=== PATIENT | female | born 1965 | race Two or more races ===

== ENCOUNTER 2017-02-14 09:44 | Emergency (ER) | payer SELFPAY ==
[~2017-02-14] VITALS: Ht 160 cm; Wt 63.5 kg
[2017-02-14] MEDS ORDERED: AMLODIPINE BES2.5 MG ORAL (09:48)
[2017-02-14 10:00] VITALS: BP 143/83
[2017-02-14 10:19] LABS: BASOPHILS % (AUTO) 1.1 % (0.0-2.0); EOSINOPHILS % (AUTO) 1.2 % (0.0-3.0); LYMPHOCYTES % (AUTO) 25.9 % (20.0-45.0); MEAN CORPUSCULAR HEMOGLOBIN 30.4 PG (27.0-31.0); MEAN CORPUSCULAR HGB CONC 33.6 G/DL (32.0-36.0); MEAN CORPUSCULAR VOLUME 91 FL (80-99); MEAN PLATELET VOLUME 5.9 FL (6.5-10.1); MONOCYTES % (AUTO) 6.2 % (1.0-10.0); NEUTROPHILS % (AUTO) 65.6 % (45.0-75.0); PLATELET COUNT 350 K/UL (150-450); RED BLOOD COUNT 4.67 M/UL (4.20-5.40); RED CELL DISTRIBUTION WIDTH 11.7 % (11.6-14.8); WHITE BLOOD COUNT 8.7 K/UL (4.8-10.8)
[2017-02-14 10:29] LABS: ALANINE AMINOTRANSFERASE 25 U/L (3-33); ALBUMIN/GLOBULIN RATIO 1.2 (1.0-2.7); ANION GAP 14 (5-15); ASPARTATE AMINO TRANSFERASE 16 U/L (5-40); CALCIUM 9.4 mg/dL (8.6-10.2); CARBON DIOXIDE 26 mEQ/L (20-30); CHLORIDE 101 mEQ/L (98-107); CREATININE 0.6 mg/dL (0.5-0.9); GLOMERULAR FILTRATION RATE > 60 mL/min (>60); HEMOLYSIS 7; POTASSIUM 3.6 mEQ/L (3.4-4.9); SODIUM 141 mEQ/L (135-145); TOTAL PROTEIN 7.7 g/dL (6.6-8.7)
[2017-02-14 10:30] LABS: TROPONIN I < 0.30 ng/mL (<=0.30)
[2017-02-14] MEDS ORDERED: Ketorolac 30mg Inj IV ONE (10:30)
[2017-02-14 10:40] LABS: CKMB < 1.5 ng/mL (< 3.8)
--- NOTE | 2017-02-14 10:57 | Diagnostic Imaging Report ---
Indication: SOB Technique: One view of the chest Comparison: none Findings: Lungs and pleural spaces are clear. Heart size is normal. Impression: No acute process
[2017-02-14 11:00] VITALS: BP 135/70
[2017-02-14] MEDS ORDERED: IBUPROFEN600 MG ORAL (11:04)
--- NOTE | 2017-02-14 11:08 | Emergency Room Report ---
History of Present Illness General Chief Complaint: Chest Pain Source: Patient, EMS Present Illness HPI 51YOF with chest pain since yesterday Took ASA yesterday Pain is upper left chest, left shoulder with associated left arm pain Worse with movement Worse on palpation ?history of HTN Allergies: Coded Allergies: MORPHINE (Verified Allergy, Unknown, 02/14/17) Patient History Past Medical History: HTN Past Surgical History: none Pertinent Family History: none Social History: Denies: smoking, alcohol use, drug use Last Menstrual Period: do not remember Now: No Immunizations: UTD Reviewed Nursing Documentation: PMH: Agreed, PSxH: Agreed Nursing Documentation-PMH Past Medical History: No History, Except For Hx Hypertension: Yes Hx Diabetes: Yes - pre diabetic Review of Systems All Other Systems: negative except mentioned in HPI Physical Exam Vital Signs Date Time Temp Pulse Resp B/P (MAP) Pulse Ox O2 Delivery O2 Flow Rate FiO2 02/14/17 09:33 98.1 62 16 152/94 100 Room Air Sp02 EP Interpretation: reviewed, normal General Appearance: normal inspection, well appearing, no apparent distress, alert, GCS 15, non-toxic Head: normocephalic, atraumatic Eyes: bilateral eye PERRL, bilateral eye EOMI ENT: normal ENT inspection, hearing grossly normal, normal voice Neck: normal inspection, full range of motion, supple, no bony tend Respiratory: normal inspection, lungs clear, normal breath sounds, no respiratory distress, no retraction, no wheezing, other - hyperalgesia to palpation left upper chest, chest symmetrical Cardiovascular #1: regular rate, rhythm, no edema Gastrointestinal: normal inspection, normal bowel sounds, non tender, soft, no guarding, no hernia Genitourinary: no CVA tenderness Musculoskeletal: normal inspection, back normal, normal range of motion, Yolanda' s Sign negative Neurologic: normal inspection, alert, oriented x3, responsive, account support manager III-XII nml as tested, motor strength/tone normal, speech normal Psychiatric: normal inspection, judgement/insight normal, mood/affect normal Skin: normal inspection, normal color, no rash Medical Decision Making Diagnostic Impression: Primary Impression: Chest pain Qualified Codes: R07.89 - Other chest pain ER Course VSS. Afebrile Most likely MSK pain given duration of time, reproducible, worse with movement, improved with toradol Unlikely ACS given ECG NSR, no ischemia. Troponin 0. CXR negative for PTX Advised PMD followup in 2-3 days Return to ER for worsening symptoms EKG Diagnostic Results Rate: normal Rhythm: NSR ST Segments: no acute changes ASA given to the pt in ED: No Rhythm Strip Diag. Results EP Interpretation: yes Rate: 75 Rhythm: NSR, no PVC's, no ectopy Chest X-Ray Diagnostic Results Chest X-Ray Diagnostic Results : Chest X-Ray Ordered: Yes # of Views/Limited/Complete: 1 View Indication: Chest Pain EP Interpretation: Yes Interpretation: no consolidation, no effusion, no pneumothorax, no acute cardiopulmonary disease Impression: No acute disease Interpreting ER Provider: Electronically signed by Dr Nadia Mendez MD Last Vital Signs Date Time Temp Pulse Resp B/P (MAP) Pulse Ox O2 Delivery O2 Flow Rate FiO2 02/14/17 11:00 98.0 02/14/17 10:00 64 18 143/83 97 Room Air Status: improved Disposition: HOME, SELF-CARE Condition: Improved Scripts Ibuprofen* (MOTRIN*) 600 Mg Tablet 600 MG ORAL THREE TIMES A DAY for For Pain for 7 Days, #30 TAB 0 Refills Prov: NADIA MENDEZ M.D. 02/14/17 Referrals: NOT CHOSEN [facility]/,REFERRING (PCP) Patient Instructions: Nonspecific Chest Pain Additional Instructions: - Take motrin up to 3x a day with food for neck/shoulder/arm/chest pain - Also apply ice as needed - Follow up with your doctor when you return home NADIA MENDEZ M.D. Feb 14, 2017 11:08
[2017-02-14 11:15] VITALS: BP 135/70
--- NOTE | 2017-02-21 18:53 | Cardiology Report ---
APPROVED REPORT EKG Measurement Heart [id number] Normal sinus rhythm with sinus arrhythmia Normal ECG
== END 2017-02-14 11:15 | disposition home or self-care (01) ==
LOC: EDBD 09:44 → EMR 10:45
DX: R07.9 Chest pain, unspecified (principal); R73.03 Prediabetes; Z88.6 Allergy status to analgesic agent; I10 Essential (primary) hypertension
CPT/HCPCS: 36415; 71010; 80053; 82550; 82553; 84484; 85025; 93005; 96374; 99284; J1885